=== PATIENT | male | born 1970 | race Caucasian/White ===

== ENCOUNTER 2019-06-14 18:47 | Emergency (ER) | payer MEDICAID ==
[~2019-06-14] VITALS: Ht 188 cm; Wt 113.4 kg
[~2019-06-14 18:47] MED LIST: ASPI-543 PO; ATOR80TA PO; CHOL20007 PO; GLIP10TA9 PO; IBUP800T24 PO; LISI-285 PO; METF-370 PO; OMEP20TA PO; PROP40TA59 PO; SERT100T PO; TICA90TA PO
[2019-06-14] MEDS ORDERED: KETOROLAC TROMETH 60MG/2ML VIAL IM ONE (22:30)
[2019-06-15] VITALS: BP 141/76
[2019-06-15 01:30] LABS: Basophils # (auto) 0 10 ^3/uL (0-0.2); Basophils % (auto) 0.7 % (0.0-2.0); Eosinophils # (auto) 0.1 10 ^3/uL (0-0.8); Eosinophils % (auto) 2.1 % (0.0-7.0); Hematocrit 42.1 % (41.0-53.0); Hemoglobin 14.1 g/dL (13.5-17.5); Lymphocytes # (auto) 1.8 10 ^3/uL (0.4-5.4); Lymphocytes % (auto) 26.8 % (10.0-50.0); Mean Corpuscular Hgb Conc. 33.5 g/dL (32.0-36.0); Mean Corpuscular Volume 86.5 fL (80.0-100.0); Monocytes # (auto) 0.8 10 ^3/uL (0-1.3); Monocytes % (auto) 11.5 % (0.0-12.0); Neutrophils % (auto) 58.9 % (37.0-80.0); Nucleated Red Blood Cells % 0.1 %; Platelet Count (auto) 190 10^3/uL (140-450); Red Blood Cells 4.87 10^6/uL (4.5-5.90); Red Cell Distribution Width 13.4 % (11.8-14.3); White Blood Cell 6.7 10^3/uL (4.4-10.8)
[2019-06-15] MEDS ORDERED: cefTRIAXone SOD 1,000 MG VL IM ONE (01:45)
[2019-06-15 01:49] LABS: Albumin 3.5 g/dL (3.4-5.0); Calcium 8.5 mg/dL (8.5-10.1); Potassium 3.7 mmol/L (3.5-5.1)
[2019-06-15 01:51] LABS: BUN/Creatinine Ratio 22.9
[2019-06-15 01:53] LABS: Bilirubin, Total 0.4 mg/dL (0.2-1.0); Total Protein 7.2 g/dL (6.4-8.2)
[2019-06-15] MEDS ORDERED: CLINDAMYCIN HCL 150 MG CAP PO ONE (03:00)
== END 2019-06-15 03:20 | disposition home or self-care (01) ==
LOC: ER 18:47
DX: K04.7 Periapical abscess without sinus (principal); I10 Essential (primary) hypertension; E78.5 Hyperlipidemia, unspecified; E11.9 Type 2 diabetes mellitus without complications; F17.210 Nicotine dependence, cigarettes, uncomplicated
CPT/HCPCS: 36415; 70486; 80053; 83605; 85025; 85610; 85730; 87040; 96372; 99284; J0696; J1885

== ENCOUNTER 2021-02-02 13:45 | Emergency (ER) | payer MEDICAID ==
[~2021-02-02] VITALS: Ht 188 cm; Wt 108.9 kg
[~2021-02-02 13:45] MED LIST changes: -IBUP800T24 PO; +IBUP800T27 PO
[2021-02-02 15:54] VITALS: BP 130/82
== END 2021-02-02 17:19 | disposition left against medical advice (07) ==
LOC: ER 13:45
DX: R06.02 Shortness of breath (principal); Z53.21 Procedure and treatment not carried out due to patient leaving prior to being seen by health care provider
CPT/HCPCS: 71045